=== PATIENT | female | born 1990 | race Caucasian/White ===

== ENCOUNTER 2021-02-04 09:49 | Emergency (ER) | payer BC, SELFPAY ==
[2021-02-04 09:56] VITALS: BP 130/94; PULSE 103; RESP 16; TEMP 36.9; O2SAT 99
--- NOTE | 2021-02-04 10:01 | ED.NAVMDI ---
HPI - Nausea/Vomiting/Diarrhea General Chief complaint: Nausea/Vomiting/Diarrhea Stated complaint: vomiting Time Seen by Provider: 02/04/21 10:01 Source: patient, RN notes reviewed and old records reviewed Mode of arrival: ambulatory Limitations: no limitations History of Present Illness HPI Narrative: 31-year-old female who presents to [facility] with complaints of acute nausea and vomiting which started this morning around 0700 and she states that she thinks she has vomited about 20 times. Patient states that she drank alcohol at a family gathering last night and she states she had not eaten enough yesterday and had not drank any alcohol for 6-7 months. Patient states that she passed out this morning once for a short time and she is feeling lightheaded and dizzy. She states that she can't keep any fluids down. MD elicited complaint: nausea and vomiting Related Data Home Medications Medication Instructions Recorded Confirmed citalopram mg 02/04/21 dextroamphetamine-amphetamine PO 02/04/21 montelukast mg 02/04/21 Allergies Allergy/AdvReac Type Severity Reaction Status Date / Time egg Allergy Swelling Verified 02/04/21 10:06 Review of Systems Review of Systems: Narrative: CONSTITUTIONAL: Denies fever, chills, or sweats. EYES: Denies visual changes, redness, or discharge. ENT: Denies rhinorrhea, congestion, sore throat, or otalgia. CARDIOVASCULAR: Denies chest pain, palpitations, or edema. RESPIRATORY: Denies cough or dyspnea. GASTROINTESTINAL: Denies abdominal pain, acute nausea, vomiting, no diarrhea. GENITOURINARY: Denies dysuria or hematuria. SKIN: Denies rash or itching. MUSCULOSKELETAL: Denies back pain, joint pain, or myalgia. NEUROLOGIC: Denies headache, numbness, or weakness. PSYCHIATRIC: Denies anxiety or depression. All systems reviewed & are unremarkable except as noted in HPI and below PMFSH Past Medical History Medical History (Updated 02/04/21 @ 11:39 by Ewelina Olson NP) Acne ADD (attention deficit disorder) Surgical History Surgical History (Updated 02/04/21 @ 10:24 by Ewelina Olson NP) History of ankle surgery ligament and tendon repair right Family History Family History (Updated 02/04/21 @ 10:23 by Ewelina L. Whitney, [employer]) Grandparent Lung cancer Hypertension Social History Social History (Updated 02/04/21 @ 14:33 by Ewelina Olson NP) Smoking status: Never smoker Alcohol intake: current Alcohol use details: social Substance use: current Substance use type: marijuana Last use: 2-3 times weekly Living arrangements: with family Gender identity (if verbalized by the patient): Female Comments At time of signature, agree with nursing past medical, surgical, social and family history. There is no relevant family history pertinent to the presenting complaint Exam Narrative: Exam Narrative: GENERAL: Ill-appearing, well-nourished, and in fair distress due to persistent vomiting since earlier this morning with episode where she fainted once for only short interval and has experienced lightheadedness. HEAD: Normocephalic, atraumatic. EYES: PERRLA and EOMI. ENT: Nares clear, no rhinorrhea or epistaxis. Mucous membranes moist. NECK: Supple. no lymphadenopathy CHEST: Clear to auscultation. No respiratory distress.SAO2 99% on room air HEART: Regular rate and rhythm. No murmur heard. Normal peripheral pulses. ABDOMEN: Soft, nontender to palpation, nondistended, normal active bowel sounds, nausea with vomiting since this morning, negative McBurney point tenderness, EXTREMITIES: Normal range of motion. No edema. SKIN: Warm, dry, no rash. NEURO: No focal deficits. Alert and oriented x3. Course Vital Signs Vital signs: Vital Signs Temperature 36.9 C 02/04/21 09:56 Pulse Rate 103 H 02/04/21 09:56 Respiratory Rate 16 02/04/21 09:56 Blood Pressure 130/94 H 02/04/21 09:56 Pulse Oximetry 99 02/04/21 09:56 Temperature 36.9 C 02/04/21
[2021-02-04] MEDS: ONDANSETRON HCL ODT 4 MG TABLET SUBLINGUAL ×2 (10:19)
[2021-02-04] MEDS: PROMETHAZINE HCL 25 MG/ML AMPUL IM (11:02)
--- NOTE | 2021-02-04 11:18 | PC.NURSE ---
Pt offered water after Promethazine injection. Pt reports she is willing to try small sips of water at this time.
[2021-02-04 11:29] VITALS: BP 127/82; PULSE 100
--- NOTE | 2021-02-04 11:50 | PC.NURSE ---
Pt able to drink 16.9 oz water and keep it down. Pt reports feeling much improvement at this time. Pt denies any nausea at this time. Pt reports she is ready to go home and reports she is starting to feel hungry.
== END 2021-02-04 11:46 | disposition home or self-care (01) ==
PROVIDERS: Emergency Provider Registered Nurse; PCP Internal Medicine
DX: R11.2 Nausea with vomiting, unspecified (principal); F98.8 Other specified behavioral and emotional disorders with onset usually occurring in childhood and adolescence
CPT/HCPCS: 96372; 99203; A9270; G0463; J2550